=== PATIENT | male | born 1960 | race Caucasian/White ===

== ENCOUNTER 2019-08-09 12:33 | Emergency (ER) | payer OTHER ==
[2019-08-09] MEDS ORDERED: NA CHLORIDE 0.9% 1,000 ML ONE (13:10)
[2019-08-09] MEDS ORDERED: ONDANSETRON 4 MG/2 ML VIAL ONE (13:10)
[2019-08-09] MEDS ORDERED: MORPHINE 4 MG/ML SYR ONE (13:10)
[2019-08-09 13:18] LABS: Absolute Lymphocytes (CBC) 1.4 K/uL (0.7-4.9); Basophils % 0.5 % (0-1.3); Hematocrit 47.5 % (39.6-49.0); Lymphocytes % 22.5 % (15.3-44.8); MPV 6.7 fL (7.6-11.3); RBC Red Blood Cell Count 5.18 M/uL (4.33-5.43)
[2019-08-09 13:34] LABS: Albumin 3.6 g/dL (3.4-5.0); Bilirubin Direct 0.2 mg/dL (0-0.2); Bilirubin Total 0.9 mg/dL (0.2-1.0); Protein, Total 7.4 g/dL (6.4-8.2)
--- NOTE | 2019-08-09 14:30 | RAD REPORT ---
EXAM DESCRIPTION: CTAbdomen Pelvis W Contrast - 08/09/2019 2:22 pm CLINICAL HISTORY: Abdominal pain. ABD PAIN COMPARISON: No comparisons TECHNIQUE: Biphasic CT imaging of the abdomen and pelvis was performed with 100 ml non-ionic IV cont rast. All CT scans are performed using dose optimization technique as appropriate and may include automated exposure control or mA/KV adjustment according to patient size. FINDINGS: The lung bases are clear. The liver demonstrates diffuse fatty infiltration. The spleen, pancreas, adrenal glands and kidneys a re within normal limits. No bowel obstruction, free air, free fluid or abscess. The appendix is normal. No evidence of signi ficant lymphadenopathy. Small fat containing right inguinal hernia. Moderate lumbosacral degenerative changes. IMPRESSION: No acute intra-abdominal or pelvic finding. Fatty liver.
--- NOTE | 2019-08-09 14:40 | ER ---
Nurse's Notes [facility] Name: Siddharth Pacheco Age: 58 yrs Sex: Male : 1960 Arrival Date: 08/09/2019 Time: 12:36 Bed 25 Private MD: Diagnosis: Zoster [herpes zoster];Unspecified abdominal pain Presentation: 08/09 12:43 Presenting complaint: Patient states: Abdominal pain underneath ribs on the L side and ca1 radiates to the back, worse at night that started 5 days ago. Denies N/V/D/fever. Denies s/s of urinary problems. No prior hx of abdl pain. Transition of care: patient was not received from another setting of care. Onset of symptoms was August 09, 2019. Risk Assessment: Do you want to hurt yourself or someone else? Patient reports no desire to harm self or others. Initial Sepsis Screen: Does the patient meet any 2 criteria? No. Patient's initial sepsis screen is negative. Does the patient have a suspected source of infection? No. Patient's initial sepsis screen is negative. Care prior to arrival: None. 12:43 Method Of Arrival: Ambulatory ca1 12:43 Acuity: FLOR 3 ca1 Historical: - Allergies: 12:46 No Known Allergies; ca1 - Home Meds: 12:46 Metoprolol [Active]; Cholesterol Med [Active]; ca1 - PMHx: 12:46 Hyperlipidemia; Hypertension; ca1 - PSHx: 12:46 Knee surgery; ca1 - Immunization history:: Adult Immunizations up to date, Pneumococcal vaccine is not up to date, Flu vaccine is not up to date. - Social history:: Smoking status: Patient/guardian denies using tobacco. - Ebola Screening: : Patient negative for fever greater than or equal to 101.5 degrees Fahrenheit, and additional compatible Ebola Virus Disease symptoms Patient denies exposure to infectious person Patient denies travel to an Ebola-affected area in the 21 days before illness onset No symptoms or risks identified at this time. Screenin:52 Abuse screen: Denies threats or abuse. Denies injuries from another. Nutritional mg2 screening: No deficits noted. Tuberculosis screening: No symptoms or risk factors identified. Fall Risk IV access (20 points). Assessment: 13:51 General: Appears in no apparent distress. comfortable, Behavior is calm, cooperative. mg2 Pain: Complains of pain in abdomen Pain radiates to back Pain currently is 5 out of 10 on a pain scale. Quality of pain is described as aching, Pain began gradually, 2-3 days ago. Neuro: Level of Consciousness is awake, alert, obeys commands, Oriented to person, place, time, situation. Cardiovascular: Capillary refill < 3 seconds Patient's skin is warm and dry. Respiratory: Airway is patent Respiratory effort is even, unlabored, Respiratory pattern is regular, symmetrical. Respiratory: Reports cough that is. GI: Bowel sounds present X 4 quads. Abd is soft and non tender. GI: Reports upper abdominal pain. : No signs and/or symptoms were reported regarding the genitourinary system. EENT: No signs and/or symptoms were reported regarding the EENT system. Derm: Skin is intact, is healthy with good turgor, Skin is pink, warm \T\ dry. normal. Musculoskeletal: Circulation, motion, and sensation intact. Capillary refill < 3 seconds. 15:00 Reassessment: Patient appears in no apparent distress at this time. Patient states mg2 feeling better. Patient states symptoms have improved. Vital Signs: 12:46 BP 177 / 98; Pulse 91; Resp 17 S; Temp 97.3(O); Pulse Ox 96% on R/A; Weight 136.08 kg ca1 (R); Height 6 ft. 3 in. (190.50 cm) (R); Pain 5/10; 13:53 Pulse 81; Resp 18; Pulse Ox 99% on R/A; mg2 14:00 BP 155 / 90; mg2 15:05 BP 144 / 80; Pulse 82; Resp 18; Temp 98; Pulse Ox 100% on R/A; mg2 12:46 Body Mass Index 37.50 (136.08 kg, 190.50 cm) ca1 ED Course: 12:36 Patient arrived in ED. mr 12:44 Triage completed. ca1 12:46 Arm band placed on right wrist. ca1 12:47 Veronica Marvin RN is Primary Nurse. ss 12:52 Clifton Casper NP is PHCP. pm1 12:52 Jayjay Guillen MD is Attending Physician. pm1 13:10 Inserted saline lock: 20 gauge in left antecubital area, using aseptic technique. Blood mg2 collected. 13:20 Radiology exam delayed due to lab results not completed at this time. (BUN/Creatinine). bq 13:52 No provider procedures requiring assistance completed. mg2 13:53 Patient has correct armband on for positive identification. mg2 14:22 CT completed. Patient tolerated procedure well. Patient moved back from CT. mw3 14:24 CT Abd/Pelvis - IV Contrast Only In Process Unspecified. EDMS 15:00 IV discontinued, intact, bleeding controlled, No redness/swelling at site. Pressure mg2 dressing applied. Administered Medications: 13:11 Drug: morphine 4 mg Route: IVP; Site: left antecubital; mg2 15:01 Follow up: Response: No adverse reaction; Pain is decreased; RASS: Alert and Calm (0) mg2 13:11 Drug: Zofran 4 mg Route: IVP; Site: left antecubital; mg2 15:01 Follow up: Response: No adverse reaction mg2 13:11 Drug: NS 0.9% 1000 ml Route: IV; Rate: 1000 ml; Site: left antecubital; mg2 15:01 Follow up: Response: No adverse reaction; IV Status: Completed infusion; IV Intake: mg2 1000ml 15:04 Drug: [place] 10 mg-325 mg 1 tabs Route: PO; mg2 15:05 Follow up: Response: No adverse reaction; Medication administered at discharge. mg2 Intake: 15:01 IV: 1000ml; Total: 1000ml. mg2 Outcome: 14:38 Discharge ordered by . pm1 15:06 Discharged to home ambulatory, with family. mg2 15:06 Condition: stable 15:06 Discharge instructions given to patient, family, Instructed on discharge instructions, follow up and referral plans. medication usage, Demonstrated understanding of instructions, follow-up care, medications, Prescriptions given X 2. 15:07 Patient left the ED. mg2 Signatures: Dispatcher [employer] EDTX Kathia Bowen Betty bq Veronica Marvin RN RN ss Clifton Casper, MI[employer]ING SETTER pm1 Sree Glaser RN RN mg2 Jennifer Dejesus mw3 Jaylin Carmona RN RN ca1
--- NOTE | 2019-08-09 14:40 | EDPHYS ---
Physician Documentation [facility] Name: Siddharth Pacheco Age: 58 yrs Sex: Male : 1960 Arrival Date: 08/09/2019 Time: 12:36 Bed 25 Private MD: NEO Physician Jayjay Guillen HPI: 08/09 12:59 This 58 yrs old Male presents to ER via Ambulatory with complaints of pm1 Abdominal Pain, Back Pain. 12:59 The patient presents with abdominal pain in the left upper quadrant. Onset: The pm1 symptoms/episode began/occurred 08/04/2019. The symptoms radiate to left back. Associated signs and symptoms: Pertinent negatives: nausea, vomiting, and diarrhea, chest pain, dysuria, fever, shortness of breath, testicular pain. The symptoms are described as sharp, painful with shirt touching his rash. 12:59 Severity of pain: in the emergency department the pain is actually worse. The patient pm1 has not experienced similar symptoms in the past. The patient has not recently seen a physician, has an appointment scheduled, tomorrow. Patient with rash to left lateral thorax to left upper quadrant. Historical: - Allergies: 12:46 No Known Allergies; ca1 - Home Meds: 12:46 Metoprolol [Active]; Cholesterol Med [Active]; ca1 - PMHx: 12:46 Hyperlipidemia; Hypertension; ca1 - PSHx: 12:46 Knee surgery; ca1 - Immunization history:: Adult Immunizations up to date, Pneumococcal vaccine is not up to date, Flu vaccine is not up to date. - Social history:: Smoking status: Patient/guardian denies using tobacco. - Ebola Screening: : Patient negative for fever greater than or equal to 101.5 degrees Fahrenheit, and additional compatible Ebola Virus Disease symptoms Patient denies exposure to infectious person Patient denies travel to an Ebola-affected area in the 21 days before illness onset No symptoms or risks identified at this time. ROS: 12:59 Constitutional: Negative for fever, chills, and weight loss, Cardiovascular: Negative pm1 for chest pain, palpitations, and edema, Respiratory: Negative for shortness of breath, cough, wheezing, and pleuritic chest pain. 12:59 Back: Negative for injury and pain, MS/Extremity: Negative for injury and deformity. 12:59 Neuro: Negative for headache, weakness, numbness, tingling, and seizure. 12:59 Abdomen/GI: Positive for abdominal pain, of the left upper quadrant, Negative for nausea, vomiting, and diarrhea, constipation. 12:59 Skin: Positive for rash, of the anterior aspect of left lateral abdomen. Exam: 12:59 Constitutional: This is a well developed, well nourished patient who is awake, alert, pm1 and in no acute distress. Neck: Trachea midline, no thyromegaly or masses palpated, and no cervical lymphadenopathy. Supple, full range of motion without nuchal rigidity, or vertebral point tenderness. No Meningismus. Chest/axilla: Normal chest wall appearance and motion. Nontender with no deformity. No lesions are appreciated. Cardiovascular: Regular rate and rhythm with a normal S1 and S2. No gallops, murmurs, or rubs. Normal PMI, no JVD. No pulse deficits. Respiratory: Lungs have equal breath sounds bilaterally, clear to auscultation and percussion. No rales, rhonchi or wheezes noted. No increased work of breathing, no retractions or nasal flaring. Abdomen/GI: Soft, non-tender, with normal bowel sounds. No distension or tympany. No guarding or rebound. No evidence of tenderness throughout. Back: No spinal tenderness. No costovertebral tenderness. Full range of motion. 12:59 MS/ Extremity: Pulses equal, no cyanosis. Neurovascular intact. Full, normal range of motion. 12:59 Skin: consistent with zoster, on the anterior aspect of left lateral abdomen and left upper quadrant. 12:59 Neuro: Orientation: is normal, Motor: is normal, moves all fours. Vital Signs: 12:46 BP 177 / 98; Pulse 91; Resp 17 S; Temp 97.3(O); Pulse Ox 96% on R/A; Weight 136.08 kg ca1 (R); Height 6 ft. 3 in. (190.50 cm) (R); Pain 5/10; 13:53 Pulse 81; Resp 18; Pulse Ox 99% on R/A; mg2 14:00 BP 155 / 90; mg2 15:05 BP 144 / 80; Pulse 82; Resp 18; Temp 98; Pulse Ox 100% on R/A; mg2 12:46 Body Mass Index 37.50 (136.08 kg, 190.50 cm) ca1 MDM: 12:55 Patient medically screened. thierno 12:59 ED course: Patient and concerned that the abdominal pain can be caused by pm1 something else besides shingles, would like abdominal work up. 14:37 Data reviewed: vital signs. Data interpreted: Pulse oximetry: on room air is 99 %. pm1 Interpretation: normal. 14:37 Counseling: I had a detailed discussion with the patient and/or guardian regarding: the pm1 historical points, exam findings, and any diagnostic results supporting the discharge/admit diagnosis, lab results, radiology results, the need for outpatient follow up, to return to the emergency department if symptoms worsen or persist or if there are any questions or concerns that arise at home. 08/09 12:50 Order name: Basic Metabolic Panel; Complete Time: 13:40 ss 08/09 12:50 Order name: CBC with Diff; Complete Time: 13:40 ss 08/09 12:50 Order name: Creatinine for Radiology; Complete Time: 13:40 ss 08/09 12:50 Order name: Hepatic Function; Complete Time: 13:40 ss 08/09 12:50 Order name: Lipase; Complete Time: 13:40 ss 08/09 13:02 Order name: CT Abd/Pelvis - IV Contrast Only; Complete Time: 14:33 pm1 08/09 12:50 Order name: IV Saline Lock; Complete Time: 13:05 ss 08/09 12:50 Order name: Labs collected and sent; Complete Time: 13:05 ss Administered Medications: 13:11 Drug: morphine 4 mg Route: IVP; Site: left antecubital; mg2 15:01 Follow up: Response: No adverse reaction; Pain is decreased; RASS: Alert and Calm (0) mg2 13:11 Drug: Zofran 4 mg Route: IVP; Site: left antecubital; mg2 15:01 Follow up: Response: No adverse reaction mg2 13:11 Drug: NS 0.9% 1000 ml Route: IV; Rate: 1000 ml; Site: left antecubital; mg2 15:01 Follow up: Response: No adverse reaction; IV Status: Completed infusion; IV Intake: mg2 1000ml 15:04 Drug: [place] 10 mg-325 mg 1 tabs Route: PO; mg2 15:05 Follow up: Response: No adverse reaction; Medication administered at discharge. mg2 Disposition: 08/10 07:31 Co-signature as Attending Physician, Jayjay Guillen MD I agree with the assessment and thierno plan of care. Disposition: 08/09/19 14:38 Discharged to Home. Impression: Zoster [herpes zoster], Unspecified abdominal pain. - Condition is Stable. - Discharge Instructions: Abdominal Pain, Adult, Shingles. - Prescriptions for Tylenol- Codeine #3 300-30 mg Oral Tablet - take 2 tablets by ORAL route every 6 hours As needed; 20 tablet. Valtrex 1 g Oral Tablet - take 1 tablet by ORAL route every 8 hours for 7 days; 21 tablet. - Medication Reconciliation Form, Thank You Letter, Antibiotic Education, Prescription Opioid Use form. - Follow up: Emergency Department; When: As needed; Reason: Worsening of condition. Follow up: Private Physician; When: 2 - 3 days; Reason: Recheck today's complaints, Continuance of care, Re-evaluation by your physician. - Problem is new. - Symptoms have improved. Signatures: Dispatcher [employer] EDAK Jayjay Guillen MD MD cha Smirch, Shelby, RN RN ss Clifton Casper NP [employer] SUPERVISOR pm1 Sree Glaser RN RN mg2 Jaylin Carmona RN RN ca1 Corrections: (The following items were deleted from the chart) 01 14:38 14:38 08/09/2019 14:38 Discharged to Home. Impression: Zoster [herpes zoster]. pm1 Condition is Stable. Discharge Instructions: Shingles. Prescriptions for Tylenol-Codeine #3 300-30 mg Oral Tablet - take 2 tablet by ORAL route every 6 hours As needed; 30 tablet, Valtrex 1 g Oral Tablet - take 1 tablet by ORAL route every 8 hours for 7 days; 21 tablet. and Forms are Medication Reconciliation Form, Thank You Letter, Antibiotic Education, Prescription Opioid Use. Follow up: Emergency Department; When: As needed; Reason: Worsening of condition. Follow up: Private Physician; When: 2 - 3 days; Reason: Recheck today's complaints, Continuance of care, Re-evaluation by your physician. Problem is new. Symptoms have improved. pm1 15:07 14:38 08/09/2019 14:38 Discharged to Home. Impression: Zoster [herpes zoster]; mg2 Unspecified abdominal pain. Condition is Stable. Discharge Instructions: Shingles. Prescriptions for Tylenol-Codeine #3 300-30 mg Oral Tablet - take 2 tablet by ORAL route every 6 hours As needed; 30 tablet, Valtrex 1 g Oral Tablet - take 1 tablet by ORAL route every 8 hours for 7 days; 21 tablet. and Forms are Medication Reconciliation Form, Thank You Letter, Antibiotic Education, Prescription Opioid Use. Follow up: Emergency Department; When: As needed; Reason: Worsening of condition. Follow up: Private Physician; When: 2 - 3 days; Reason: Recheck today's complaints, Continuance of care, Re-evaluation by your physician. Problem is new. Symptoms have improved. pm1
[2019-08-09] MEDS ORDERED: HYDROCODONE/APAP 10/325 TAB ONE (14:56)
[2019-08-09 15:18] VITALS: BP 144/80; TEMP 98; O2SAT 100
== END 2019-08-09 15:07 | disposition home or self-care (01) ==
LOC: ER 12:33
DX: B02.9 Zoster without complications (principal); I10 Essential (primary) hypertension; E78.5 Hyperlipidemia, unspecified
CPT/HCPCS: 96361; 85025; 80048; 36415; 80076; 83690; 74177; 96375; 96374; 99284; Q9967; J7030; J2405

== ENCOUNTER 2019-10-15 11:09 | Emergency (ER) | payer OTHER ==
[2019-10-15] MEDS ORDERED: METHYLPREDNISOLONE 125 MG INJ ONE (13:28)
[2019-10-15] MEDS ORDERED: KETOROLAC 30 MG/ML INJ ONE (13:29)
--- NOTE | 2019-10-15 14:31 | RAD REPORT ---
EXAM DESCRIPTION: CTSpine Lumbar Wo Con10/15/2019 2:16 pm CLINICAL HISTORY: Left leg radiculopathy COMPARISON: None TECHNIQUE: Computed axial tomography lumbar spine was obtained with coronal and sagittal reconstruct ion. All CT scans are performed using dose optimization technique as appropriate and may include automated exposure control or mA/KV adjustment according to patient size. FINDINGS: No fracture is seen. No dislocation is noted. Disc bulge T12-L1 narrows the thecal sac a 9 millimeters Disc bulge L1-2 narrows the thecal sac is 7.5 millimeters Disc bulge, osteophytes and facet hypertrophy L2-3 narrow the thecal sac to 5.5 millimeters. Moderate narrowing of the neural foramina bilaterally Disc bulge and facet hypertrophy L3-4 narrow the thecal sac to 9 millimeters. Small right lateral dis c herniation L3-4 narrows the right neural foramina Disc bulge and facet hypertrophy L4-5 result in moderate narrowing of the neural foramina bilaterally thecal sac mildly narrowed. Mild spondylosis L5-S1 Small hemangioma within the T12 vertebral body IMPRESSION: Negative for a lumbar fracture. Spondylosis most marked at L2-3 resulting in moderate to marked central spinal stenosis Small right lateral disc herniation L3-4 If clinically indicated further evaluation could be obtained with MRI
[2019-10-15] MEDS ORDERED: HYDROCODONE/APAP 10/325 TAB ONE ×2 (16:49→17:42)
--- NOTE | 2019-10-15 17:33 | EDPHYS ---
Physician Documentation [facility] Name: Siddharth Pacheco Age: 58 yrs Sex: Male : 1960 Arrival Date: 10/15/2019 Time: 11:09 Bed 20 Private MD: Silver Edwards T ED Physician Russ Espinosa HPI: 10/15 07:28 This 58 yrs old Male presents to ER via Ambulatory with complaints of Hip kdr Pain, Leg Pain. 07:28 The patient or guardian reports pain. that occurred at home, sustained from unknown kdr reason, There is no obvious deformity, The patient is able to self ambulate. The patient is able to bear their full body weight. The patient's discomfort radiates to the lateral aspect of left thigh. The complaints affect the lateral aspect of left thigh. Onset: The symptoms/episode began/occurred gradually, 3 day(s) ago. Modifying factors: The symptoms are alleviated by nothing, the symptoms are aggravated by Sitting or laying down. Associated signs and symptoms: Loss of consciousness: the patient experienced no loss of consciousness, Pertinent positives: Pertinent negatives: abdominal pain, altered mental status, anorexia, chest pain, diarrhea, dizziness, dysuria, fever, headache, incontinence, nausea, shortness of breath, vomiting, weakness. Severity of symptoms: At their worst the symptoms were mild. The patient has not experienced similar symptoms in the past, The patient did have shingle a few months ago that presented in a similar fashion. The patient has not recently seen a physician. Historical: - Allergies: 10/14 11:23 No Known Allergies; jl7 - Home Meds: 11:23 metoprolol [Active]; valsartan oral oral [Active]; Lipitor Oral [Active]; jl7 - PMHx: 11:23 Hypertension; Hyperlipidemia; jl7 - PSHx: 11:23 Knee surgery; jl7 - Immunization history:: Adult Immunizations not up to date. - Social history:: Smoking status: Patient denies any tobacco usage or history of. ROS: 10/15 07:28 Constitutional: Negative for fever, chills, and weight loss, Eyes: Negative for injury, kdr pain, redness, and discharge, Neck: Negative for injury, pain, and swelling, Cardiovascular: Negative for chest pain, palpitations, and edema, Respiratory: Negative for shortness of breath, cough, wheezing, and pleuritic chest pain, Abdomen/GI: Negative for abdominal pain, nausea, vomiting, diarrhea, and constipation, Back: Negative for injury and pain, : Negative for injury, bleeding, discharge, and swelling, MS/Extremity: Negative for injury and deformity, Psych: Negative for depression, anxiety, suicide ideation, homicidal ideation, and hallucinations, Allergy/Immunology: Negative for hives, rash, and allergies, Endocrine: Negative for neck swelling, polydipsia, polyuria, polyphagia, and marked weight changes, Hematologic/Lymphatic: Negative for swollen nodes, abnormal bleeding, and unusual bruising. Skin: Positive for Negative for abrasions, abscesses, avulsion, burn, cellulitis, diaphoresis, discoloration, erythema, hematoma, jaundice, lesions, pallor, puncture, rash, swelling, ulceration. Exam: 07:28 Constitutional: This is a well developed, well nourished patient who is awake, alert, kdr and in no acute distress. 07:28 Skin: Appearance: Color: normal in color, Temperature: normal temperature, petechiae, not noted, ecchymosis, not noted. Vital Signs: 10/14 11:20 BP 139 / 86; Pulse 81; Resp 17 S; Temp 97.8(O); Pulse Ox 98% on R/A; Weight 136.98 kg jl7 (R); Height 6 ft. 3 in. (190.50 cm) (R); Pain 5/10; 14:04 BP 156 / 93; Pulse 76; Resp 18; Temp 98.0(TE); Pulse Ox 100% on R/A; mh5 15:04 BP 140 / 91; Pulse 84; Resp 17; Pulse Ox 96% ; Pain 5/10; rb1 16:46 BP 154 / 89; Pulse 86; Resp 18; Temp 98.1(O); Pulse Ox 97% on R/A; mh5 17:44 BP 153 / 90; Pulse 83; Resp 17; Pulse Ox 99% on R/A; Pain 8/10; rb1 11:20 Body Mass Index 37.75 (136.98 kg, 190.50 cm) jl7 MDM: 17:31 Patient medically screened. kdr 10/15 07:28 Data reviewed: vital signs, nurses notes, lab test result(s), radiologic studies. kdr Counseling: I had a detailed discussion with the patient and/or guardian regarding: the historical points, exam findings, and any diagnostic results supporting the discharge/admit diagnosis, lab results, radiology results, the need for outpatient follow up. ED course: The patient did not have much relief from the initial round of medication. After further discussion, it was revealed that he had had shingles a few months ago and that it presented in a similar fashion. ED course: The patient did get some relief from the [place] and felt improved and well enough to go hoe with medication for shingles and pain. 10/14 13:15 Order name: CT Lumbar Spine Wo Con kdr 10/14 15:15 Order name: CT; Complete Time: 15:21 EDMS 10/14 13:41 Order name: Saline Lock; Complete Time: 13:41 mh5 Administered Medications: 10/14 13:40 Drug: SOLU-Medrol 125 mg Route: IVP; Site: right antecubital; rb1 13:55 Follow up: Response: No adverse reaction rb1 13:40 Drug: TORadol - Ketorolac 15 mg Route: IVP; Site: right antecubital; rb1 13:55 Follow up: Response: No adverse reaction rb1 14:00 Drug: Robaxin 1 grams Route: IVPB; Infused Over: 1 hrs; Site: right antecubital; rb1 15:28 Follow up: Response: No adverse reaction; IV Status: Completed infusion rb1 16:46 Drug: [place] 10 mg-325 mg 1 tabs Route: PO; rb1 17:15 Follow up: Response: No adverse reaction; Pain is decreased rb1 17:43 Drug: [place] 10 mg-325 mg 1 tabs Route: PO; rb1 17:55 Follow up: Response: Medication administered at discharge. rb1 17:43 Drug: valACYclovir 1000 mg Route: PO; rb1 17:55 Follow up: Response: Medication administered at discharge. rb1 Disposition: 10/15/19 17:31 Discharged to Home. Impression: Pain in left hip. - Condition is Stable. - Discharge Instructions: Pain Without a Known Cause. - Prescriptions for Tylenol- Codeine #3 300-30 mg Oral Tablet - take 2 tablets by ORAL route every 4-6 hours As needed; 24 tablet. Valtrex 1 g Oral Tablet - take 1 tablet by ORAL route every 8 hours for 7 days; 21 tablet. Medrol ([place]) 4 mg Oral Tablets, Dose Pack - take 1 tablet by ORAL route as directed - follow package instructions; 1 packet. - Medication Reconciliation Form, Thank You Letter, Antibiotic Education, Prescription Opioid Use form. - Follow up: Silver Edwards MD; When: 2 - 3 days; Reason: If symptoms return, Further diagnostic work-up, Recheck today's complaints, Continuance of care, Re-evaluation by your physician. - Problem is new. - Symptoms have improved. Signatures: Dispatcher [employer] EDMS Russ Espinosa MD MD kdr Mirta Thomas, RN RN rb1 Janelle Vasquez 5 Judy Alba RN RN jl7 Corrections: (The following items were deleted from the chart) 18:03 17:31 10/15/2019 17:31 Discharged to Home. Impression: Pain in left hip. Condition is rb1 Stable. Forms are Medication Reconciliation Form, Thank You Letter, Antibiotic Education, Prescription Opioid Use. Follow up: Silver Edwards; When: 2 - 3 days; Reason: If symptoms return, Further diagnostic work-up, Recheck today's complaints, Continuance of care, Re-evaluation by your physician. Problem is new. Symptoms have improved. kdr
--- NOTE | 2019-10-15 17:33 | ER ---
Nurse's Notes [facility] Name: Siddharth Pacheco Age: 58 yrs Sex: Male : 1960 Arrival Date: 10/15/2019 Time: 11:09 Bed 20 Private MD: Silver Edwards T Diagnosis: Pain in left hip Presentation: 10/14 11:20 Chief complaint: Patient states: Left hip pain, radiates to left leg, since 10/13/2019, jl7 denies trauma. Took 400 mg Motrin this morning, no relief. Coronavirus screen: The patient has NOT traveled to a country currently being monitored by the [facility] within the last 14 days. Proceed with normal triage procedures. Ebola Screen: No symptoms or risks identified at this time. Initial Sepsis Screen: Does the patient meet any 2 criteria? No. Patient's initial sepsis screen is negative. Does the patient have a suspected source of infection? No. Patient's initial sepsis screen is negative. Risk Assessment: Do you want to hurt yourself or someone else? Patient reports no desire to harm self or others. Onset of symptoms was October 13, 2019. Care prior to arrival: Medication(s) given: Motrin, 400 mg. 11:20 Method Of Arrival: Ambulatory 7 11:20 Acuity: FLOR 4 jl7 Triage Assessment: 11:23 General: Appears in no apparent distress. uncomfortable, Behavior is calm, cooperative, jl7 appropriate for age. Pain: Complains of pain in left hip Pain currently is 5 out of 10 on a pain scale. at worst was 9 out of 10 on a pain scale. Neuro: Level of Consciousness is awake, alert, obeys commands. Cardiovascular: Patient's skin is warm and dry. Respiratory: Airway is patent Respiratory effort is even, unlabored, Respiratory pattern is regular, symmetrical. Derm: Skin is pink, warm \T\ dry. Historical: - Allergies: 11:23 No Known Allergies; jl7 - Home Meds: 11:23 metoprolol [Active]; valsartan oral oral [Active]; Lipitor Oral [Active]; jl7 - PMHx: 11:23 Hypertension; Hyperlipidemia; jl7 - PSHx: 11:23 Knee surgery; jl7 - Immunization history:: Adult Immunizations not up to date. - Social history:: Smoking status: Patient denies any tobacco usage or history of. Screenin:00 Abuse screen: Denies threats or abuse. Nutritional screening: No deficits noted. rb1 Tuberculosis screening: No symptoms or risk factors identified. Fall Risk None identified. Assessment: 13:00 General: Appears uncomfortable, Behavior is calm, cooperative. Pain: Complains of pain rb1 in left hip Pain radiates to left leg Pain currently is 5 out of 10 on a pain scale. at worst was 10 out of 10 on a pain scale. Aggravated by repositioning. Neuro: Level of Consciousness is awake, alert, obeys commands, Oriented to person, place, time, situation. Cardiovascular: Capillary refill Patient's skin is warm and dry. Respiratory: Airway is patent Respiratory effort is even, unlabored, Respiratory pattern is regular, symmetrical. GI: No signs and/or symptoms were reported involving the gastrointestinal system. : No signs and/or symptoms were reported regarding the genitourinary system. Derm: Skin is pink, warm \T\ dry. Musculoskeletal: Range of motion: intact in all extremities. 14:00 Reassessment: Patient appears in no apparent distress at this time. Patient and/or rb1 family updated on plan of care and expected duration. Pain level reassessed. Patient is alert, oriented x 3, equal unlabored respirations, skin warm/dry/pink. 15:00 Reassessment: Patient appears in no apparent distress at this time. No changes from rb1 previously documented assessment. 16:00 Reassessment: Patient appears in no apparent distress at this time. Patient and/or rb1 family updated on plan of care and expected duration. Pain level reassessed. Patient is alert, oriented x 3, equal unlabored respirations, skin warm/dry/pink. 17:00 Reassessment: Patient appears in no apparent distress at this time. No changes from rb1 previously documented assessment. Family at the bedside. 17:28 Reassessment: Family member would like to know if there is a blood test that can be rb1 done for the [place] antibodies. Dr. Espinosa notified. 17:35 Reassessment: Dr. Espinosa at the pt. bedside speaking with the pt. and family. rb1 Vital Signs: 11:20 BP 139 / 86; Pulse 81; Resp 17 S; Temp 97.8(O); Pulse Ox 98% on R/A; Weight 136.98 kg jl7 (R); Height 6 ft. 3 in. (190.50 cm) (R); Pain 5/10; 14:04 BP 156 / 93; Pulse 76; Resp 18; Temp 98.0(TE); Pulse Ox 100% on R/A; mh5 15:04 BP 140 / 91; Pulse 84; Resp 17; Pulse Ox 96% ; Pain 5/10; rb1 16:46 BP 154 / 89; Pulse 86; Resp 18; Temp 98.1(O); Pulse Ox 97% on R/A; mh5 17:44 BP 153 / 90; Pulse 83; Resp 17; Pulse Ox 99% on R/A; Pain 8/10; rb1 11:20 Body Mass Index 37.75 (136.98 kg, 190.50 cm) 7 ED Course: 11:09 Patient arrived in ED. ag5 11:10 Silver Edwards MD is Private Physician. ag5 11:22 Triage completed. jl7 11:23 Arm band placed on right wrist. Patient placed in waiting room, Patient notified of [facility] wait time. 12:54 Russ Espinosa MD is Attending Physician. kdr 13:00 Patient has correct armband on for positive identification. Bed in low position. Call rb1 light in reach. Side rails up X 1. Pulse ox on. NIBP on. 13:04 Mirta Thomas, RN is Primary Nurse. rb1 13:40 Inserted saline lock: 20 gauge in right antecubital area, using aseptic technique. 5 Blood collected. 17:29 Silver Edwards MD is Referral Physician. kdr 17:56 No provider procedures requiring assistance completed. IV discontinued, intact, rb1 bleeding controlled, No redness/swelling at site. Pressure dressing applied. Administered Medications: 13:40 Drug: SOLU-Medrol 125 mg Route: IVP; Site: right antecubital; rb1 13:55 Follow up: Response: No adverse reaction rb1 13:40 Drug: TORadol - Ketorolac 15 mg Route: IVP; Site: right antecubital; rb1 13:55 Follow up: Response: No adverse reaction rb1 14:00 Drug: Robaxin 1 grams Route: IVPB; Infused Over: 1 hrs; Site: right antecubital; rb1 15:28 Follow up: Response: No adverse reaction; IV Status: Completed infusion rb1 16:46 Drug: [place] 10 mg-325 mg 1 tabs Route: PO; rb1 17:15 Follow up: Response: No adverse reaction; Pain is decreased rb1 17:43 Drug: [place] 10 mg-325 mg 1 tabs Route: PO; rb1 17:55 Follow up: Response: Medication administered at discharge. rb1 17:43 Drug: valACYclovir 1000 mg Route: PO; rb1 17:55 Follow up: Response: Medication administered at discharge. rb1 Outcome: 17:31 Discharge ordered by . kdr 17:56 Patient left the ED. rb1 17:56 Discharged to home ambulatory, with family. rb1 17:56 Condition: stable 17:56 Discharge instructions given to patient, Instructed on discharge instructions, follow up and referral plans. medication usage, Demonstrated understanding of instructions, follow-up care, medications, Prescriptions given X 3. Signatures: Russ Espinosa MD MD kdr Barber, Rebecca, RN RN rb1 Janelle Vasquez 5 uJdy Alba RN RN jl7 Stanford Hernandez 5 Corrections: (The following items were deleted from the chart) 18:09 18:03 Patient left the ED. rb1 rb1
[2019-10-15] MEDS ORDERED: VALACYCLOVIR 500 MG TAB ONE (17:42)
[2019-10-15 18:34] VITALS: BP 154/89; TEMP 98.1; O2SAT 97
== END 2019-10-15 18:03 | disposition home or self-care (01) ==
LOC: ER 11:09
DX: M25.552 Pain in left hip (principal); I10 Essential (primary) hypertension; E78.5 Hyperlipidemia, unspecified
CPT/HCPCS: 96365; 72131; 96375; 99284; J2930; J2800